=== PATIENT | female | born 1965 | race Caucasian/White ===

== ENCOUNTER 2022-10-13 06:30 | Day surgery (SDC) | payer OTHER, SELFPAY ==
[2022-10-04 15:43] LABS: Hematocrit 42.4 % (37-47); Hemoglobin 13.3 g/dL (12.0-15.0); Mean Corp Hgb Conc 31.4 g/dL (32-36); Mean Corpuscular Hgb 28.9 pg (27.0-32.0); Mean Corpuscular Volume 92.2 fL (81-99); Mean Platelet Vol. 10.2 fl (6.2-12.0); Platelet Count 188 K/mm3 (150-450); RBC Distribution Width CV 13.4 % (11.6-14.6); RBC Distribution Width SD 45.4 fl (35.1-43.9); White Blood Count 6.1 K/mm3 (4.4-11.0)
[2022-10-13] VITALS (7 sets, daily range): BP systolic 107–124; BP diastolic 54–75; PULSE 54–84; RESP 16–18; TEMP 16.1–36.9; O2SAT 81–100; BMI 24.1
--- NOTE | 2022-10-13 07:09 | PCM.HP.BLA ---
History and Physical Date of Admission: 10/13/22 Patient here for removal of bilateral ruptured silicone implants and capsulectomies followed by replacement with silicone implants. The procedure have been thoroughly reviewed with the patient including the potential risk and complications of surgery through an informed consent. The patient was examined and there are no changes to the medical clearance of 09/22/2022. Assessment & Plan Assessment/Plan (1) Breast deformity: (2) Ruptured left breast implant: QUALIFIERS: Encounter type: sequela Qualified Code(s): T85.43XS - Leakage of breast prosthesis and implant, sequela (3) Ruptured right breast implant: QUALIFIERS: Encounter type: sequela Qualified Code(s): T85.43XS - Leakage of breast prosthesis and implant, sequela (4) Capsular contracture of breast implant: QUALIFIERS: Encounter type: subsequent encounter Qualified Code(s): T85.44XD - Capsular contracture of breast implant, subsequent encounter PLAN: Plan Patient for removal of silicone implants and capsulectomies followed by replacement of silicone implants.
[2022-10-13] MEDS: Lactated Ringers 1,000 ML 15 ML IV ×2 (07:20→13:08)
--- NOTE | 2022-10-13 08:00 | FORE_PTH ---
PATIENT: SHIVA CUADRA [place] [facility] [place][id number] AGE/SX: 57/F ROOM: RE10/13/[address]: Dr. Kath Villalobos MD : 1965 BED: DIS: 10/13/2022 SPEC #: [id number] RECD: 10/13/22 14:04 STATUS: CARMEN HEWITT #: [id number] SU: 10/13/22 08:[address]: Kath Villalobos DEPT: SURGICAL PATHOLOGY RECD BY: Kerry Pizarro ENTERED: 10/16/22 07:27 SP TYPE: FOREIGN B OTHR DR: Dr. Gonzalez Kemp MD Tissues: A - Breast, NOS B - Breast, NOS Procedures: Surgery Specimen Level I Surgery Specimen Level IV HEADER OPERATION: Removal bilateral silicone implants with capsulectomies PRE-OP DIAGNOSIS: Bilateral breast deformity, bilateral ruptured breast implants TISSUE SUBMITTED: A - Left breast implant and capsule, B - Right breast implant and capsule MICROSCOPIC DIAGNOSIS A. Left breast implant, removal: Unremarkable implant (gross diagnosis only). Implant capsular tissue, excision: Fibrosis, mild chronic inflammation and focal benign histiocytic reaction. B. Right breast implant, removal: Consistent with ruptured implant (gross diagnosis only). Implant capsular tissue, excision: Fibrosis, chronic inflammation and benign histiocytic proliferation. AM:isael 10/17/2022 MICROSCOPIC DESCRIPTION Slides are reviewed. GROSS DESCRIPTION A - Received in fixative is one container labeled with the patient's name and designated left breast implant and capsule. The specimen consists of a discoid breast silicone implant measuring 13.0 cm in diameter and bearing the following inscription Dellroy [id number] 300 cc. The implant is intact without tears of breaks. Also present in the specimen container is an irregular fragment of wong-yellow soft tissue measuring 10.0 x 5.0 x 1.0 cm. Serial sections of this tissue does not reveal mass lesions. African History Professor sections of this soft tissue are submitted in one cassette. B - Received in fixative is one container labeled with the patient's name and designated right breast implant and capsule. The specimen consists of a synthetic capsule material received in three fragments ranging in size from 11.0 to 14.0 cm. The capsule has an average thickness of 0.1 cm. It bears the following inscription Dellroy [id number] 300 cc. Also present in the specimen container are four irregular fragments of pink-wong soft tissue ranging in size from 1.0 to 11.05 cm. Serial sections do not reveal mass lesions. African History Professor sections of this soft tissue are submitted in one cassette. The gross is reviewed with the surgeon in person. / AM:isael 10/16/2022 TC:3 CPT: 19829 x2, 86246 x2
[2022-10-13] MEDS: Cefazolin 2 GM in 0.9% Normal Saline 100 ML IV (08:06)
[2022-10-13] MEDS: Gentamicin 80 MG/2 ML Vial (08:40)
[2022-10-13] MEDS: Bupivacaine 0.25% 30 ML Vial (12:24)
--- NOTE | 2022-10-13 12:38 | DCINST_ITS ---
Discharge Instructions Diet Discharge Diet: No restrictions Activity Additional Activity Instructions:: Follow instructions given in the office. Dressing / Incision Additional Dressing/Incision Instructions:: Keep the dressing intact. Keep your back elevated. Follow Up Care Test Results: Test results from this visit will be discussed in further detail at your follow- up appointment, if applicable. Discharge Plan Admission Attending Provider: Kath Villalobos Primary Care Provider: CRESENCIO DESOUZA Consulting Providers: Gonzalez Kemp Discharge Orders/Prescriptions Prescriptions: No Action baclofen 20 mg tablet 20 mg PO BID fluoxetine 10 mg tablet 10 mg PO DAILY gabapentin 100 mg capsule 100 mg PO BID trazodone 100 mg tablet 100 mg PO QHS cephalexin 500 mg capsule 500 mg PO BID Qty: 14 0RF Acidophilus Capsule 100 mmu cells PO DAILY Referrals / Follow Up: Town Doctor,Out of [Non-Staff] - Disposition Disposition (needs filled in before D/C Order can be placed): Home, Self Care
--- NOTE | 2022-10-13 12:42 | OP.PCM_ITS ---
Report of Operation Date of Procedure: 10/13/22 Pre-Operative Diagnosis: Ruptured silicone implants per mammogram. Capsular co ntraction Post-Operative Diagnosis: Same Surgery/Procedure Performed:: Removal of bilateral silicone implants with capsulectomies; replacement with silicone implants (375 Brandywine M+ profile) Description of Surgical Findings:: The patient presents today for removal of her silicone implants that were placed approximately 16 years ago along with capsulectomies. Mammogram had demonstrated evidence of implant rupture and therefore she presents for removal of the implants, capsulectomies, and replacement with silicone gel implants. The patient had chosen her implant size prior to the procedure. She wanted to have silicone implants placed and chose her size. The procedure of been reviewed with the patient prior to the procedure including the potential risk which include but are not exclusive of bleeding, infection, pain, numbness, asymmetry, scar tissue, the need for further surgery, DVT, and even . She is marked in the preop holding area prior to surgery. The patient was brought to the operating room and placed under general anesthesia in the supine position. Care was taken to pad all pressure points, apply sequential compression stockings, a Pruitt catheter, and a warming pad. The breast and chest are prepped and draped in the usual sterile fashion. We initially began with making an incision in the inframammary area through her previous incision and extending this in order to accommodate the capsulectomies. The incisions are carried down through the subcutaneous tissue until the cap rahul of the implant is encountered. The capsule was then carefully dissected from the surrounding tissue. The left breast capsule is noted to be very thin. The implant is taken out along the anterior and a portion of the posterior capsule. No gross leakage is noted. The wound is irrigated with antibiotic solution and checked for meticulous hemostasis which is assured with cautery. We then began the cosmetic portion of the procedure. The implant is opened and checked for leaks. With no leaks being found, the implant is placed in a dilute antibiotic solution until ready for replant. The wound is again checked for hemostasis which is assured with cautery. A portion of Tegaderm is placed on the skin and the implant is placed within the pocket without difficulty. Proper orientation is assured. We then directed our attention to the opposite side (right side). An incision is made in the inframammary crease of incorporates part of the previous scar. This is carried down through the subcutaneous tissue until the capsule was encountered. The capsule is noted to be thicker. The patient is noted to have extracapsular leak of silicone and the implant is noted to be completely d isrupted with 3 pieces of the shell extracted. Gross spillage of the silicone in the area was noted and care is taken to remove as much silicone as possible. Further attention is given to the capsule and the anterior and posterior wall of the capsule was removed. A small portion of the capsule against the chest wall superiorly is left in place as the tissue was noted to be attenuated and thin o artis an intercostal area. The remainder of the capsule is removed however. The wound again is copiously irrigated with antibiotic solution and checked for hemostasis which is controlled with cautery. We then began the cosmetic portion of the procedure. The implant is opened and checked for leaks. With no leaks being found, the implant is placed in a dilute antibiotic solution. The pocket is again checked for hemostasis and with this being intact, a Tegaderm is placed over the skin edge and the implant placed within the pocket. Proper orientation is assured. After assuring symmetry of the implant locations we began wound closure. Vicryl sutures were used to approximate the deeper fascia and subcutaneous tissue using a 3-0 Vicryl suture in a [id number] fashion. Care is taken to shield the implant during suturing. A 3 oh V-Loc 90-day suture was then used to approximate the subcutaneous tissue, dermis, and skin. The skin is closed in a subcuticular fashion. Xeroform is placed on the incision followed by gauze and she is placed in a surgery bra. The Pruitt catheter is removed. She tolerated the procedure well and was taken to the recovery area in an awake and stable condition. Needle and sponge counts are correct. Surgeon: Kath Villalobos Type of Anesthesia: General Specimen's removed: implants and capsules Drains: none Estimated Blood Loss (mL): <50cc Grafts/Implants Used: Brandywine silicone M+profile 375cc (style [id number]) Complications none
[2022-10-13] MEDS: Oxycodone/Apap 5/325 Tablet PO (14:35)
== END 2022-10-13 15:22 | disposition home or self-care (01) ==
LOC: SDC 06:34 → AC 06:35
PROVIDERS: Anesthesiology; Referring Provider Plastic Surgery; Visit Provider Plastic Surgery
PROC: (CPT 19370; principal; 2022-10-13 07:40)
DX: T85.43XA Leakage of breast prosthesis and implant, initial encounter (principal); N65.0 Deformity of reconstructed breast; T85.828A Fibrosis due to other internal prosthetic devices, implants and grafts, initial encounter; Y83.1 Surgical operation with implant of artificial internal device as the cause of abnormal reaction of the patient, or of later complication, without mention of misadventure at the time of the procedure; T85.44XA Capsular contracture of breast implant, initial encounter
CPT/HCPCS: 19370; 19342; 00402; 36415; 85027; 88300; 88305; J7120; J2405